=== PATIENT | male | born 1955 | race Caucasian/White ===

== ENCOUNTER 2018-07-07 21:39 | Emergency (ER) | payer OTHER ==
[2018-07-07 21:45] VITALS: BP 178/98
--- NOTE | 2018-07-07 21:58 | EDPHY ---
H & P Stated Complaint: R shoulder injury, ROM intact Source: Patient Exam Limitations: No limitations - Personal History Current Tetanus/Diphtheria Vaccine: Yes Current Tetanus Diphtheria and Acellular Pertussis (TDAP): Yes - Medical/Surgical History Hx Asthma: No Hx Chronic Respiratory Disease: No Hx Diabetes: No Hx Cardiac Disease: No Hx Renal Disease: No Hx Cirrhosis: No Hx Alcoholism: No Hx HIV/AIDS: No Hx Splenectomy or Spleen Trauma: No - Social History Smoking Status: Former smoker Time Seen by Provider: 07/07/18 21:57 HPI/ROS: HPI: This is a 62-year-old male who presents with Chief Complaint: R shoulder injury, ROM intact Location: Right shoulder Quality: Injury Duration: Prior to arrival Signs and Symptoms: No bleeding, no radiation, no numbness, no weakness, no tingling, no incontinence, + decreased range of motion, no swelling, + pain, no fever Timing: Acute Severity: Moderate Context: Patient is right-hand dominant, presents with complaints of right shoulder injury that occurred while holding onto the handle on the bus. He reports that he fell backwards and felt a popping and pulling sensation in the anterior lateral portion of his right shoulder. Patient reports that pain is worsened from waist level up to heart level but improved from heart level to above his head. Denies radiation, weakness, paresthesias, decreased range of motion. Modifying Factors: None Comment: ROS: A comprehensive 10 system review of systems is otherwise negative aside from elements mentioned in the history of present illness. MEDICAL/SURGICAL/SOCIAL HISTORY: Medical history: Hypertension, hyperlipidemia Surgical history: Denies Social history: Former smoker. Denies drug use. CONSTITUTIONAL: Well-developed, well-nourished, elderly white male, awake and alert, no obvious distress HEENT: Atraumatic and normocephalic. NECK: supple EXTREMITIES: 2/2 pulses, strength 5/5, right SHOULDER: Mild tenderness over the SA joint; no laxity appreciated; Arc test abduction to 180, abduction to 45 , horizontal flexion 130, horizontal extension to 45, deltoid strength 4/5. Mild pain with Neer test/Albarran test (impingement). Mild Tenderness to palpation over AC joint. No clavicle deformity. DIP/PIP/MCP flexion/extension intact with good light touch sensation. no deformities, no clubbing, no cyanosis or edema. NEUROLOGICAL: no focal neuro deficits. GCS 15. Light touch sensation intact. SKIN: Warm and dry, no erythema. no rash. Good capillary refill. (Kristin Ladd ) Constitutional: Initial Vital Signs Temperature (C) 37.0 C 07/07/18 21:43 Heart Rate 77 07/07/18 21:43 Respiratory Rate 18 07/07/18 21:43 Blood Pressure 178/98 H 07/07/18 21:43 O2 Sat (%) 96 07/07/18 21:43 O2 Delivery Mode Room Air Allergies/Adverse Reactions: No Known Allergies Allergy (Unverified 07/07/18 21:41) Home Medications: Medication Instructions Recorded Aspirin 07/07/18 Atenolol 07/07/18 Atorvastatin Calcium 07/07/18 B-12 07/07/18 Coq10 07/07/18 Lisinopril 07/07/18 Magnesium 07/07/18 Meloxicam 07/07/18 Niacin 07/07/18 Potassium Gluconate 07/07/18 Tamsulosin HCl 07/07/18 Vitamin C 07/07/18 Vitamin D2 07/07/18 amLODIPine/ATORVASTATIN 07/07/18 Medical Decision Making - Diagnostics Imaging Results: Imaging Impressions Shoulder X-Ray 07/07/18 22:00 Impression: 1. No fracture or acute process. 2. Stigmata of rotator cuff impingement and old type III AC separation. Procedures: Procedure: Splint placement. A right sling was applied by the Emergency Room smt technician. After application of the splint I returned and re-examined the patient. The splint was adequately immobilizing the joint and distal to the splint the patient's circulation and sensation was intact. (Kristin Ladd) ED Course/Re-evaluation: PHYSICIAN DOCUMENTATION: The patient was evaluated and managed by the Physician [employer]. My co- signature indicates that I have reviewed this chart and I agree with the findings and plan of care as documented. I am the secondary supervising physician. (Melia Swartz) Right shoulder x-ray ordered and my read via PAC shows no fracture, dislocation Suspect internal derangement of labrum/AC joint/rotator cuff Placed in sling for comfort and Ortho follow-up as needed No signs of neurovascular compromise/tenting of skin/compartment syndrome/ extremities and joints examined above and below area of concern and are neurovascularly intact. This patient was seen under the supervision of my secondary supervising physician. I evaluated care for this patient independently. Discussed this patient with Dr. Swartz. (Kristin Ladd) Differential Diagnosis: Differential diagnosis includes but is not limited to labral tear, rotator cuff injury, AC joint sprain, AC joint rupture, bursitis, sprain. (Kristin Ladd) Departure - Departure Disposition: Home, Routine, Self-Care Clinical Impression: Sprain of right shoulder joint Qualifiers: Encounter type: initial encounter Shoulder sprain type: unspecified sprain Qualified Code(s): S43.401A - Unspecified sprain of right shoulder joint, initial encounter Condition: Good Instructions: How to Use a Sling (ED), Shoulder Sprain (ED) Additional Instructions: Wear the sling while out of bed until pain free. Take Tylenol 650 mg every 4 hours and/or Ibuprofen 600 mg every 8 hours with food as needed for pain. Apply ice for 30 minutes at a time; 2-3 times per day for the next 1-2 days. Follow up with Orthopedics in 7-10 days if symptoms persist at which time they will evaluate and recommend with you if conservative management versus MRI is indicated. The x-rays obtained in the emergency department today demonstrate no evidence of an obvious fracture. Sometimes fractures are not obvious on the initial set of x-rays performed in the ED. For this reason, you should have repeat x-rays performed in 7-10 days if you are having any pain exclude the possibility of an occult fracture. Referrals: Juancarlos Thomas MD [Medical Doctor] - As per Instructions
== END 2018-07-07 22:30 | disposition home or self-care (01) ==
DX: S43.401A Unspecified sprain of right shoulder joint, initial encounter (principal); I10 Essential (primary) hypertension; E78.5 Hyperlipidemia, unspecified; W19.XXXA Unspecified fall, initial encounter; Y92.811 Bus as the place of occurrence of the external cause; Y99.0 Civilian activity done for income or pay; Z87.891 Personal history of nicotine dependence
CPT/HCPCS: A4565